=== PATIENT | female | born 1975 | race Caucasian/White ===

== ENCOUNTER 2017-12-14 13:35 | Outpatient (CLI) | payer OTHER | END 2017-12-14 13:36 | disposition home or self-care (01) | LOC: BICMAMMO 13:35 | PROVIDERS: ATTEND Obstetrics & Gynecology | DX: Z12.31 Encounter for screening mammogram for malignant neoplasm of breast (principal); Z80.3 Family history of malignant neoplasm of breast | CPT/HCPCS: 77063; 77067 ==

== ENCOUNTER 2018-08-12 13:00 | Outpatient (CLI) | payer OTHER ==
--- NOTE | 2018-08-12 14:44 | ULT ---
COMPLETE BILATERAL RENAL ULTRASOUND: HISTORY: Polycystic kidney. COMPARISON: 11/03/2015 FINDINGS: The right kidney measures 10.5 x 5 x 5.2 cm. The left kidney measures 10.3 x 4.6 x 5.8 cm. There ar e numerous right renal cysts, up to 1.4 cm in size. There are numerous left renal cysts, up to 1.5 c m in size. There are some bilateral renal echogenic foci, evidence for bilateral nonobstructing shirin l calculi. No renal hydronephrosis. The urinary bladder is unremarkable. IMPRESSION: 1. Numerous bilateral renal cyst. 2. Evidence for bilateral renal calculi. 3. No evidence for renal hydronephrosis or perinephric process. POS: [facility]
== END 2018-08-12 13:01 | disposition home or self-care (01) ==
LOC: SCSULT 13:00
PROVIDERS: ATTEND Internal Medicine Nephrology
DX: Q61.3 Polycystic kidney, unspecified (principal); N18.1 Chronic kidney disease, stage 1; N28.1 Cyst of kidney, acquired; N20.0 Calculus of kidney
CPT/HCPCS: 76770

== ENCOUNTER 2019-01-20 07:09 | Outpatient (CLI) | payer OTHER ==
[2019-01-20 17:07] LABS: Hemoglobin 12.7 g/dL (12.0-16.0); Mean Corpuscular HGB CONC 33.9 g/dL (32.0-36.0); Mean Corpuscular Hemoglobin 30.9 pg (27.0-31.0); Mean Corpuscular Volume 90.9 fL (78.0-98.0); Mean Platelet Volume 6.5 fL (7.4-10.4); Platelet Count 396 thou/uL (130-400); RBC Distribution Width 11.4 % (11.5-14.5); Red Blood Cell (RBC) Count 4.12 mill/uL (4.20-5.40); White Blood Cell (WBC) Count 9.2 thou/uL (4.8-10.8)
[2019-01-20 17:17] LABS: BHCG - Serum Negative (NEGATIVE); Pregs Control Background? CLEAR/WHITE (CLR/WHITE); Pregs Control Bar Appear? YES (CONTROL BAR)
== END 2019-01-20 07:10 | disposition home or self-care (01) ==
LOC: LABBT 07:09
PROVIDERS: ATTEND Obstetrics & Gynecology
DX: Z01.818 Encounter for other preprocedural examination (principal); N84.0 Polyp of corpus uteri; N92.0 Excessive and frequent menstruation with regular cycle
CPT/HCPCS: 84703; 85027; 86850; 86900; 86901; 93005; 93010

== ENCOUNTER 2019-01-21 10:05 | Day surgery (SDC) | payer OTHER ==
--- NOTE | 2019-01-20 11:54 | HP ---
She is scheduled for outpatient surgery on 01/20. HISTORY OF PRESENT ILLNESS: Ms. Diop is a 43-year-old white female G3, P2, A1, previous vaginal deliveries x2, has been having increasingly heavy menstrual cycles. She has completed childbearing and her has a vasectomy and has tried Lysteda for the menorrhagia with minimal improvement of her symptoms. She has chronic hypertension and wants to avoid the use of oral contraceptive. Due to the continued heavy bleeding, she was noted on her report and her visit in the December of 2018, she underwent a transvaginal ultrasound. At that time, it showed her to have a lower uterine segment uterine polyp. Adnexal structures were normal. Due to this finding, we are now proceeding to carry out a hysteroscopy D and C with polyp removal along with Kerri endometrial ablation due to the previous history of menorrhagia. PAST MEDICAL HISTORY: Noted for chronic hypertension. She also has mild depression and anxiety managed with duloxetine 60 mg capsule daily. Chronic back pain from musculoskeletal onset issues. She is up to date with her Pap smear screening with a negative HPV and Pap smear in the past 3 years. OBSTETRICAL HISTORY: As noted. G3, P2 with 2 vaginal deliveries in the past. Current contraception is vasectomy. SOCIAL HISTORY: No excessive alcohol use. She is . She is a nonsmoker. PAST SURGICAL HISTORY: As noted, a third molar wisdom tooth extraction in the past and breast reduction. ALLERGIES: SHE DOES HAVE ALLERGIES TO CEPHALOSPORINS, PENICILLINS, AND TETRACYCLINE. PHYSICAL EXAMINATION: VITAL SIGNS: The patient is 5 feet and 6 inches, weight 181, and BMI 29.2. Blood pressure 118/64, pulse 72 and regular, respiratory rate 18, and O2 saturation on room air 99%. HEENT: Within normal limits. CHEST: Clear to auscultation. HEART: Regular rate and rhythm. S1 and S2 heart sounds. No murmurs, rubs, or gallops. ABDOMEN: Soft, nontender, and nondistended with no palpable masses. PELVIC: Vulva and vagina had no lesions. Cervix had no lesions. Uterus was mildly enlarged, 6 week size, nontender. Adnexa nontender with no masses. EXTREMITIES: Full range of motion and nontender. IMAGING DATA: Ultrasound on 12/16/2018 showed the uterus to measure 8.53 x 5.2 x 4.5 cm. Both right and left ovaries were normal. Endometrial polyp noted in the lower uterine segment. No fibroids noted. ASSESSMENT: This is a 43-year-old white female, G3, P2, A1, with uterine polyp along with a long history of menorrhagia and has completed childbearing. Former contraception is vasectomy in her . PLAN: To proceed with a diagnostic hysteroscopy with D and C with polyp removal followed by an Kerri endometrial ablation procedure. Risks and benefits of procedure have been discussed in detail. She is set for surgery on 01/20/2019. Job ID: [id number]
[2019-01-20 16:17] VITALS: BMI 29.0
[2019-01-21] MEDS ORDERED: Levofloxacin 500 mg/D5W 100 ml Premix Bag ONE (11:07)
[2019-01-21] MEDS ORDERED: Midazolam HCl 2 mg/2 ml Vial ONE ×3 (13:17→13:59)
[2019-01-21] MEDS ORDERED: Scopolamine 1.5 mg/72 hour Patch ONE (13:18)
[2019-01-21] MEDS ORDERED: Fentanyl 100 MCG/2 ML VIAL ONE ×2 (13:31→13:59)
[2019-01-21] MEDS ORDERED: ePHEDrine 50 MG/ML VIAL ONE (15:27)
[2019-01-21] MEDS ORDERED: Ondansetron PF 4 MG/2 ML Vial ONE (15:27)
[2019-01-21] MEDS ORDERED: Ketorolac Tromethamine 30 MG/ML VIAL ONE (15:27)
[2019-01-21] MEDS ORDERED: PROPOFOL 200 MG/20 ML VIAL ONE (15:27)
[2019-01-21] MEDS ORDERED: Dexamethasone 20 MG/5 ML VIAL ONE (15:27)
[2019-01-21] MEDS ORDERED: Lidocaine 1% PF 5 ML VIAL ONE (15:27)
--- NOTE | 2019-01-21 16:34 | OP ---
DATE OF PROCEDURE: 01/21/2019 PREOPERATIVE DIAGNOSES: 1. A 43-year-old white female G3, P2, A1 with menorrhagia. 2. Unresponsive medical management. 3. Endometrial polyp noted on ultrasound evaluation. POSTOPERATIVE DIAGNOSES: 1. A 43-year-old white female G3, P2, A1 with menorrhagia. 2. Unresponsive medical management. 3. Endometrial polyp noted on ultrasound evaluation. PROCEDURE PERFORMED: Diagnostic hysteroscopy with D and C followed by endometrial ablation with Kerri system. ANESTHESIA: General. ESTIMATED BLOOD LOSS: Less than 10 mL. COMPLICATIONS: None. COUNTS: Correct x2. PATHOLOGY: Endometrial curettings. FINDINGS: 1. Fluid deficit was 90 mL of saline. 2. Endometrial cavity proliferative phase appearing with probable endometrial polyp, status post removal. 3. Postablation evaluation of endometrial cavity showed adequate burn in the cornua, upper fundus, lower uterine segment with sparing of the endocervical canal. DISPOSITION: Recovery room and then plan for discharge home. DESCRIPTION OF PROCEDURE: The patient previously received informed consent in regard to surgery. She was taken back to the operating room, where she received a general anesthetic agent with LMA and then was prepped and draped in usual sterile fashion after she was placed in dorsal lithotomy position with Ty stirrups. A side-arm speculum was placed in the vagina. Anterior lip of the cervix was grasped with a single-tooth tenaculum. The uterus sounded to 8 cm. The uterus was sequentially dilated to a size 18 Hegar dilator and a 5 mm diagnostic scope was introduced through the cervical os and endometrial cavity with distention at 80 mm of saline pressure. Endometrial cavity was evaluated. Palpable endometrial polyp was noted and this was removed under direct visualization and the remainder of the cavity was curetted and these were sent for final pathological specimen. After this had been completed, the Kerri endometrial ablation system was then prepped in usual process. The cervical length was measured to be approximately 4 cm. A 0.5 cm length of the cervix to the fundus was noted, so the length of the Kerri was calculated to be 4.5 cm. The device was primed and was placed into the uterine cavity in usual directions and the arms were displaced. Adequate cavity width was accomplished. The cavity was tested with a CO2 with no evidence of leak and the system was then carried out, a 120 second burn was completed. Postablation evaluation of the uterine cavity was then observed with a hysteroscopy and an adequate ablation and burn of the cornua in the upper fundus, lower uterine segment, sparing of the endocervical canal was confirmed. The tenaculum was then removed along with the speculum. Hemostasis of the cervical site was confirmed. The patient was awakened from anesthesia, transferred to recovery room in stable condition. Job ID: [id number]
== END 2019-01-21 16:57 | disposition home or self-care (01) ==
LOC: SDC 10:05
PROVIDERS: ATTEND Obstetrics & Gynecology
PROC: 0U5B8ZZ Destruction of Endometrium, Via Natural or Artificial Opening Endoscopic (ICD-10-PCS; principal; 2019-01-21)
DX: N84.0 Polyp of corpus uteri (principal); I10 Essential (primary) hypertension; F41.9 Anxiety disorder, unspecified; F32.9 Major depressive disorder, single episode, unspecified; Z88.0 Allergy status to penicillin; Z88.1 Allergy status to other antibiotic agents
CPT/HCPCS: 88305; J0131; J1956; J2250; J3010